=== PATIENT | male | born 1955 | race Asian ===

== ENCOUNTER 2017-06-23 08:18 | Emergency (ER) | payer OTHER ==
[2017-06-23] MEDS ORDERED: KETOROLAC 30 MG/ML 1 ML VIAL IVP STA (08:38)
--- NOTE | 2017-06-23 08:41 | ED ---
General Adult HPI - General Chief complaint: Back Pain/Injury Stated complaint: Back pain Time Seen by Provider: 06/23/17 08:31 Source: patient, family, RN notes reviewed Mode of arrival: ambulatory Limitations: language barrier (Patient's [id number] translates.) - History of Present Illness Initial comments: Patient's a 61-year-old male significant past medical history for hypertension, presenting today with a chief complaint of lower back pain times one week. Family member at bedside helps translate information. He states that he was experiencing pain to the right lower side times one week. He states over the last 2 days she's been experiencing some discomfort both on the right and left sides. Patient does admit that it's worse with certain movements when he lays down and sits up. He denies any injury or trauma. He denies any other complaints or symptoms. States she's been trying some [id number] medications with no relief of symptoms. Patient denies any recent fever, chills , shortness of breath, chest pain, abdominal pain, nausea or vomiting, numbness or tingling, dysuria or hematuria, constipation or diarrhea, headaches or visual changes, or any other complaints. - Related Data Home Medications Medication Instructions Recorded Confirmed Losartan Potassium [Cozaar] 100 mg PO DAILY 04/15/17 06/23/17 amLODIPine [Norvasc] 10 mg PO DAILY 04/15/17 06/23/17 Meloxicam [Mobic] 15 mg PO DAILY 06/23/17 06/23/17 Previous Rx's Medication Instructions Recorded Cyclobenzaprine [Flexeril] 10 mg PO TID #20 tab 06/23/17 Ibuprofen [Motrin] 600 mg PO Q6HR PRN #40 day 06/23/17 Allergies Allergy/AdvReac Type Severity Reaction Status Date / Time No Known Allergies Allergy Verified 06/23/17 09:11 Review of Systems ROS Statement: Those systems with pertinent positive or pertinent negative responses have been documented in the HPI. ROS Other: All systems not noted in ROS Statement are negative. Past Medical History Past Medical History: Hypertension Additional Past Medical History / Comment(s): hydronephrosis History of Any Multi-Drug Resistant Organisms: None Reported Past Surgical History: Unable to Obtain Additional Past Surgical History / Comment(s): kidney surgery Past Psychological History: No Psychological Hx Reported Smoking Status: Never smoker Past Alcohol Use History: None Reported Past Drug Use History: None Reported General Exam - General Exam Comments Initial Comments: General: The patient is awake and alert, in no distress, and does not appear acutely ill. Eye: Pupils are equal, round and reactive to light, extra-ocular movements are intact. No nystagmus. There is normal conjunctiva bilaterally. No signs of icterus. Ears, nose, mouth and throat: There are moist mucous membranes and no oral lesions. Neck: The neck is supple, there is no tenderness or JVD. Cardiovascular: There is a regular rate and rhythm. No murmur, rub or gallop is appreciated. Respiratory: Lungs are clear to auscultation, respirations are non-labored, breath sounds are equal. No wheezes, stridor, rales, or rhonchi. Gastrointestinal: Soft, non-distended, non-tender abdomen without masses or organomegaly noted. There is no rebound or guarding present. Tender palpation over the right flank. Musculoskeletal: Normal ROM, no tenderness. Strength 5/5. Sensation intact. Pulses equal bilaterally 2+. Neurological: A&O x 3. CN II-XII intact, There are no obvious motor or sensory deficits. Coordination appears grossly intact. Speech is normal. Skin: Skin is warm and dry and no rashes or lesions are noted. Psychiatric: Cooperative, appropriate mood & affect, normal judgment. Limitations: language barrier Course Vital Signs 06/23/17 06/23/17 08:21 08:51 Temperature 98.1 F Pulse Rate 69 Respiratory 18 Rate Blood Pressure 131/82 O2 Sat by Pulse 98 Oximetry Medical Decision Making - Medical Decision Making Patient's CT reviewed and shows postop changes. Cholelithiasis. Indeterminate foci within the liver, indeterminate lung nodules. Follow-up recommended. Caliectasis. the right kidney. Patient's labs been reviewed. Results were discussed with the patient and his [id number] at bedside. They're advised to follow-up with the family doctor for further evaluation. Will be started on a muscle relaxer and anti-inflammatories as patient's pain is reproduced with certain movements. [place] that it may be muscular skeletal. Advised close follow -up returning if symptoms increase or worsen or for any other concerns. - Lab Data Result diagrams: 06/23/17 08:47 06/23/17 08:47 Lab Results 06/23/17 06/23/17 06/23/17 Range/Units 08:47 08:47 08:47 WBC 5.7 (3.8-10.6) k/uL RBC 5.24 (4.30-5.90) m/uL Hgb 15.7 (13.0-17.5) gm/dL Hct 46.3 (39.0-53.0) % MCV 88.5 (80.0-100.0) fL MCH 30.0 (25.0-35.0) pg MCHC 33.9 (31.0-37.0) g/dL RDW 12.5 (11.5-15.5) % Plt Count 162 (150-450) k/uL Neutrophils % 60 % Lymphocytes % 31 % Monocytes % 6 % Eosinophils % 1 % Basophils % 1 % Neutrophils # 3.4 (1.3-7.7) k/uL Lymphocytes # 1.8 (1.0-4.8) k/uL Monocytes # 0.3 (0-1.0) k/uL Eosinophils # 0.1 (0-0.7) k/uL Basophils # 0.0 (0-0.2) k/uL Sodium 145 (137-145) mmol/L Potassium 3.7 (3.5-5.1) mmol/L Chloride 109 H (98-107) mmol/L Carbon Dioxide 23 (22-30) mmol/L Anion Gap 13 mmol/L BUN 21 H (9-20) mg/dL Creatinine 1.11 (0.66-1.25) mg/dL Est GFR (CKD-EPI)AfAm 83 (>60 ml/min/1.73 sqM) Est GFR (CKD-EPI)NonAf 72 (>60 ml/min/1.73 sqM) Glucose 152 H (74-99) mg/dL Calcium 9.2 (8.4-10.2) mg/dL Total Bilirubin 1.0 (0.2-1.3) mg/dL AST 22 (17-59) U/L ALT 28 (21-72) U/L Alkaline Phosphatase 50 (38-126) U/L Total Protein 7.1 (6.3-8.2) g/dL Albumin 4.1 (3.5-5.0) g/dL Amylase 74 (30-110) U/L Lipase 140 (23-300) U/L Urine Color Light Yellow Urine Appearance Clear (Clear) Urine pH 6.5 (5.0-8.0) Ur Specific [place] 1.011 (1.001-1.035) Urine Protein Trace H (Negative) Urine Glucose (UA) Negative (Negative) Urine Ketones Negative (Negative) Urine Blood Negative (Negative) Urine Nitrite Negative (Negative) Urine Bilirubin Negative (Negative) Urine Urobilinogen <2.0 (<2.0) mg/dL Ur Leukocyte Esterase Negative (Negative) Disposition Clinical Impression: Acute low back pain Disposition: HOME SELF-CARE Condition: Good Instructions: Acute Low Back Pain (ED) Additional Instructions: Please use medication as discussed. Please follow-up with family doctor in the next 2 days. Please return to emergency room if the symptoms increase or worsen or for any other concerns. Prescriptions: Cyclobenzaprine [Flexeril] 10 mg PO TID #20 tab Ibuprofen [Motrin] 600 mg PO Q6HR PRN #40 day PRN Reason: Pain Referrals: None,Stated [REFERRING] - 1-2 days Favian Josue DO [STAFF PHYSICIAN] - 1-2 days Zackery Davenport MD [REFERRING] - 1-2 days Time of Disposition: 10:11
[2017-06-23 08:52] VITALS: RESP 18
[2017-06-23 09:07] LABS: Appearance,Urine Clear (Clear); Bilirubin,Urine Negative (Negative); Blood,Urine Negative (Negative); Color,Urine Light Yellow; Glucose,Urine (UA) Negative (Negative); Ketones,Urine Negative (Negative); Leukocyte Esterase,Urine Negative (Negative); PH, Urine 6.5 (5.0-8.0); Protein,Urine Trace (Negative); Specific Gravity,Urine 1.011 (1.001-1.035); Urobilinogen,Urine <2.0 mg/dL (<2.0)
[2017-06-23 09:09] LABS: Basophils % (A) 1 %; Eosinophils # (A) 0.1 k/uL (0-0.7); Eosinophils % (A) 1 %; HCT 46.3 % (39.0-53.0); HGB 15.7 gm/dL (13.0-17.5); Lymphocytes # (A) 1.8 k/uL (1.0-4.8); Lymphocytes % (A) 31 %; MCHC 33.9 g/dL (31.0-37.0); MCV 88.5 fL (80.0-100.0); Mean Platelet Volume 8.5; Monocytes # (A) 0.3 k/uL (0-1.0); Monocytes % (A) 6 %; Neutrophils # (A) 3.4 k/uL (1.3-7.7); Neutrophils % (A) 60 %; Platelet Count 162 k/uL (150-450); RBC 5.24 m/uL (4.30-5.90); RDW 12.5 % (11.5-15.5); WBC 5.7 k/uL (3.8-10.6)
--- NOTE | 2017-06-23 09:17 | XR ---
EXAMINATION TYPE: XR KUB DATE OF EXAM: 06/23/2017 COMPARISON: NONE HISTORY: Pain TECHNIQUE: One view abdominal series FINDINGS: The osseous structures are intact. The bowel gas pattern is nonspecific. Lung bases are clear. Surg ical clips in the gallbladder fossa are suggested. There is a large calcification in the right upper quadrant measuring 1 cm. IMPRESSION: 1. Nonspecific abdomen. 2. Nonspecific 1 cm right upper quadrant calcification could potentially be related to be large renal calculus. Given the clips within the gallbladder fossa a gallstone is felt less likely correlate wit h the surgical history for confirmation. There is no obstructive pattern and therefore the possibilit y of gallstone ileus is unlikely.
[2017-06-23 09:19] LABS: Albumin 4.1 g/dL (3.5-5.0); Calcium 9.2 mg/dL (8.4-10.2); Potassium 3.7 mmol/L (3.5-5.1); Total Protein 7.1 g/dL (6.3-8.2)
--- NOTE | 2017-06-23 10:00 | CT ---
EXAMINATION TYPE: CT abdomen pelvis wo con DATE OF EXAM: 06/23/2017 COMPARISON: NONE HISTORY: Rt flank pain CT DLP: 329.9 mGycm Automated exposure control for dose reduction was used. TECHNIQUE: Helical acquisition of images from the lung bases through the pelvis. FINDINGS: Posterior diaphragmatic kidney contains the upper pole of the right kidney. Lack of contras t may compromise sensitivity. LUNG BASES: Minimal subpleural nodularity is indeterminate. AORTA: No significant abnormality is appreciated. LIVER/GB: Multiple subcentimeter hypodense foci within the liver are indeterminate. There is a gallst one present within the neck of the gallbladder measuring approximately 16 mm, some smaller stones may be present. PANCREAS: No significant abnormality is seen. SPLEEN: No significant abnormality is seen. ADRENALS: No significant abnormality is seen. KIDNEYS: The right kidney is posteriorly displaced. Surgical clips are present towards the renal hilu m. There is some caliectasis present at the upper pole and mid pole. No ureteral calcification is tono dent. No nephrolithiasis bilaterally, no evident cortical mass on this noncontrast exam. REPRODUCTIVE ORGANS: No significant abnormality is seen. URINARY BLADDER: No significant abnormality is seen. BOWEL: No significant abnormality is seen. The appendix is not dilated, some luminal high density ma y represent appendicolith, there is also luminal air. FREE AIR: No Free Air is visible. ASCITES: None visible. PELVIC ADENOPATHY: None visualized. RETROPERITONEAL ADENOPATHY: No Retroperitoneal Adenopathy visible. OSSEOUS STRUCTURES: Degenerative disc disease noted in the visualized lumbar spine. IMPRESSION: NONCONTRAST EXAM. POSTOP CHANGES. CHOLELITHIASIS. INDETERMINATE FOCI WITHIN THE LIVER, INDETERMINATE LUNG NODULES. FOLLOW-UP RECOMMENDED. CALIECTASIS NOTED WITHIN THE RIGHT KIDNEY, COMPARISON WITH OLD E XAMS MAY BE OF BENEFIT.
[2017-06-23 10:43] VITALS: BP 164/79; PULSE 61; TEMP 98.8
== END 2017-06-23 10:24 | disposition home or self-care (01) ==
LOC: EC 08:18
DX: M54.5 Low back pain (principal); K80.20 Calculus of gallbladder without cholecystitis without obstruction; N28.89 Other specified disorders of kidney and ureter; I10 Essential (primary) hypertension; Z79.899 Other long term (current) drug therapy; Z79.1 Long term (current) use of non-steroidal anti-inflammatories (NSAID)
CPT/HCPCS: 36415; 80053; 82150; 83690; 85025; 81003; 87086; 74018; 74176; 99284; 96374; J1885

== ENCOUNTER 2021-01-05 22:26 | Emergency (ER) | payer OTHER ==
[2021-01-05] MEDS ORDERED: KETOROLAC 15 MG/ML 1 ML VIAL IVP STA (22:50)
[2021-01-05] MEDS ORDERED: ONDANSETRON 4 MG/2 ML VIAL IVP STA (22:50)
[2021-01-05] MEDS ORDERED: SODIUM CHLORIDE 0.9% 1,000 ML IV STA (22:50)
--- NOTE | 2021-01-05 23:31 | XR ---
EXAMINATION TYPE: XR KUB DATE OF EXAM: 01/05/2021 COMPARISON: 06/23/2017 HISTORY: Flank pain TECHNIQUE: 2 views FINDINGS: There is 2 cm rounded calcification over the right upper quadrant that is large calcified g allstone. There is no sign of intestinal obstruction or pneumoperitoneum. Fecal pattern is normal. Th ere is no evidence of a mass. There are no pathologic calcifications over the kidneys. Bony structures are intact. IMPRESSION: Nonacute abdomen. Large calcified gallstone.
[2021-01-05 23:32] LABS: Appearance,Urine Clear (Clear); Bilirubin,Urine Negative (Negative); Blood,Urine Negative (Negative); Color,Urine Light Yellow; Glucose,Urine (UA) 2+ (Negative); Ketones,Urine Negative (Negative); Leukocyte Esterase,Urine Negative (Negative); Nitrite,Urine Negative (Negative); PH, Urine 6.5 (5.0-8.0); Protein,Urine Negative (Negative); Specific Gravity,Urine 1.011 (1.001-1.035); Urobilinogen,Urine <2.0 mg/dL (<2.0)
[2021-01-05 23:33] LABS: Basophils # (A) 0.1 k/uL (0-0.2); Basophils % (A) 1 %; Eosinophils # (A) 0.2 k/uL (0-0.7); Eosinophils % (A) 3 %; HCT 45.9 % (39.0-53.0); HGB 15.7 gm/dL (13.0-17.5); Lymphocytes # (A) 2.3 k/uL (1.0-4.8); Lymphocytes % (A) 34 %; MCH 31.7 pg (25.0-35.0); MCHC 34.2 g/dL (31.0-37.0); MCV 92.7 fL (80.0-100.0); Mean Platelet Volume 8.1; Monocytes # (A) 0.4 k/uL (0-1.0); Monocytes % (A) 6 %; Neutrophils # (A) 3.8 k/uL (1.3-7.7); Neutrophils % (A) 56 %; Platelet Count 148 k/uL (150-450); RBC 4.95 m/uL (4.30-5.90); RDW 12.2 % (11.5-15.5); WBC 6.8 k/uL (3.8-10.6)
[2021-01-05 23:48] LABS: Albumin 4.1 g/dL (3.5-5.0); Calcium 9.1 mg/dL (8.4-10.2); Potassium 3.3 mmol/L (3.5-5.1); Total Bilirubin 1.1 mg/dL (0.2-1.3); Total Protein 7.2 g/dL (6.3-8.2)
[2021-01-05] MEDS ORDERED: POTASSIUM CHLORIDE ER 20 MEQ TAB.ER PO STA (23:51)
--- NOTE | 2021-01-05 23:53 | CT ---
EXAMINATION TYPE: CT abdomen pelvis wo con DATE OF EXAM: 01/05/2021 COMPARISON: 06/23/2017 HISTORY: pain CT DLP: 422.3 mGycm Automated exposure control for dose reduction was used. Images obtained from the diaphragm to the floor the pelvis without contrast. Lung bases are clear. There is no pleural effusion. Heart appears enlarged. There is no pericardial e ffusion. Liver spleen stomach pancreas appear intact. Bile ducts are not dilated. There is single 2 c m calcified gallstone. Gallbladder is contracted. There is no adrenal mass. Kidneys show normal size. There is some fullness of the right renal pelvis. There are clips at the right renal hilum. I see no evidence of ureteral calculus. Left kidney shows no sign of obstruction. There is no retroperitoneal adenopathy. Appendix appears normal. Bladder dist ends smoothly. There is no inguinal hernia. There is no free fluid in the pelvis. There is no mesenteric edema. There is no ascites or free air. There is no bowel obstruction. Lumbar vertebra have normal alignment. There is no compression fracture. There is degenerative disc space na rrowing at L4-5 and L5-S1. The bony pelvis is intact. The hip joints are intact. IMPRESSION: There is some fullness right renal collecting system but no calculus seen. This could relate to previ ous obstruction. Large calcified gallstone. No dilated ducts. No significant change compared to old exam..
--- NOTE | 2021-01-05 23:59 | ED ---
Abdominal Pain HPI - General Chief Complaint: Abdominal Pain Stated Complaint: Kidney stone Time Seen by Provider: 01/05/21 22:40 Source: patient, family, RN notes reviewed Mode of arrival: ambulatory - History of Present Illness Initial Comments: Patient is a 65-year-old male that presents to the emergency department complaining of right flank pain. He notes he does have a history of kidney stones that have required a surgical procedure to remove. Family members present room to translate. He notes that his pain is approximately a 6-7 out of 10 with no relief from at home remedies. He denied any alleviating or aggravating factors at this time. He was otherwise a well-appearing 65-year-old male in no apparent distress. He denied any chest pain shortness of breath h eadache nausea vomiting diarrhea constipation fever fatigue chills. - Related Data Home Medications Medication Instructions Recorded Confirmed Losartan Potassium [Cozaar] 100 mg PO DAILY 04/15/17 06/23/17 amLODIPine [Norvasc] 10 mg PO DAILY 04/15/17 06/23/17 Meloxicam [Mobic] 15 mg PO DAILY 06/23/17 06/23/17 Previous Rx's Medication Instructions Recorded Cyclobenzaprine [Flexeril] 10 mg PO TID #20 tab 06/23/17 Ibuprofen [Motrin] 600 mg PO Q6HR PRN #40 day 06/23/17 Ketorolac [Toradol] 10 mg PO Q8HR #15 tab 01/06/21 Allergies Allergy/AdvReac Type Severity Reaction Status Date / Time No Known Allergies Allergy Verified 06/23/17 09:11 Review of Systems ROS Statement: Those systems with pertinent positive or pertinent negative responses have been documented in the HPI. ROS Other: All systems not noted in ROS Statement are negative. Past Medical History Past Medical History: Hypertension Additional Past Medical History / Comment(s): hydronephrosis History of Any Multi-Drug Resistant Organisms: None Reported Past Surgical History: Unable to Obtain Additional Past Surgical History / Comment(s): kidney surgery Past Psychological History: No Psychological Hx Reported Past Alcohol Use History: None Reported Past Drug Use History: None Reported General Exam General appearance: alert, in no apparent distress Head exam: Present: atraumatic, normocephalic, normal inspection Eye exam: Present: normal appearance, PERRL, EOMI. Absent: scleral icterus, conjunctival injection, periorbital swelling Neck exam: Present: normal inspection Respiratory exam: Present: normal lung sounds bilaterally. Absent: respiratory distress, wheezes, rales, rhonchi, stridor Cardiovascular Exam: Present: regular rate, normal rhythm, normal heart sounds. Absent: systolic murmur, diastolic murmur, rubs, gallop, clicks GI/Abdominal exam: Present: soft, normal bowel sounds. Absent: distended, tenderness, guarding, rebound, rigid Extremities exam: Present: normal inspection, full ROM, normal capillary refill. Absent: tenderness, pedal edema, joint swelling, calf tenderness Back exam: Present: normal inspection, full ROM, CVA tenderness (R) Neurological exam: Present: alert, oriented X3 Psychiatric exam: Present: normal affect, normal mood Skin exam: Present: warm, dry, intact, normal color. Absent: rash Course Vital Signs 01/05/21 22:35 Temperature 98.1 F Pulse Rate 65 Respiratory 19 Rate Blood Pressure 174/80 O2 Sat by Pulse 98 Oximetry Medical Decision Making - Medical Decision Making 65-year-old male complaining of right flank pain with a history kidney stones. Labs, 50 mg Toradol, 4 g of Zofran, 1 L normal saline, CT of the abdomen and pelvis, KUB ordered. Labs: Potassium 3.3, 20 mEq potassium ordered. Rest of labs unremarkable. CT of the abdomen and pelvis shows some fluid collection in the right renal collecting system no obstruction or calculi noted. A calcified large gallstone. KUB showed right upper quadrant calcified gallstone. Case discussed with Dr. Burns, patient discharge home. - Lab Data Result diagrams: 01/05/21 23:05 01/05/21 23:05 Lab Results 01/05/21 01/05/21 01/05/21 Range/Units 23:05 23:05 23:05 WBC 6.8 (3.8-10.6) k/uL RBC 4.95 (4.30-5.90) m/uL Hgb 15.7 (13.0-17.5) gm/dL Hct 45.9 (39.0-53.0) % MCV 92.7 (80.0-100.0) fL MCH 31.7 (25.0-35.0) pg MCHC 34.2 (31.0-37.0) g/dL RDW 12.2 (11.5-15.5) % Plt Count 148 L (150-450) k/uL MPV 8.1 Neutrophils % 56 % Lymphocytes % 34 % Monocytes % 6 % Eosinophils % 3 % Basophils % 1 % Neutrophils # 3.8 (1.3-7.7) k/uL Lymphocytes # 2.3 (1.0-4.8) k/uL Monocytes # 0.4 (0-1.0) k/uL Eosinophils # 0.2 (0-0.7) k/uL Basophils # 0.1 (0-0.2) k/uL Sodium 142 (137-145) mmol/L Potassium 3.3 L (3.5-5.1) mmol/L Chloride 109 H (98-107) mmol/L Carbon Dioxide 25 (22-30) mmol/L Anion Gap 8 mmol/L BUN 23 H (9-20) mg/dL Creatinine 1.13 (0.66-1.25) mg/dL Est GFR (CKD-EPI)AfAm 79 (>60 ml/min/1.73 sqM) Est GFR (CKD-EPI)NonAf 69 (>60 ml/min/1.73 sqM) Glucose 141 H (74-99) mg/dL Calcium 9.1 (8.4-10.2) mg/dL Total Bilirubin 1.1 (0.2-1.3) mg/dL AST 32 (17-59) U/L ALT 25 (4-49) U/L Alkaline Phosphatase 48 (38-126) U/L Total Protein 7.2 (6.3-8.2) g/dL Albumin 4.1 (3.5-5.0) g/dL Amylase 73 (30-110) U/L Lipase 152 (23-300) U/L Urine Color Light Yellow Urine Appearance Clear (Clear) Urine pH 6.5 (5.0-8.0) Ur Specific [place] 1.011 (1.001-1.035) Urine Protein Negative (Negative) Urine Glucose (UA) 2+ H (Negative) Urine Ketones Negative (Negative) Urine Blood Negative (Negative) Urine Nitrite Negative (Negative) Urine Bilirubin Negative (Negative) Urine Urobilinogen <2.0 (<2.0) mg/dL Ur Leukocyte Esterase Negative (Negative) - Radiology Data Radiology results: report reviewed, image reviewed KUB: Nonacute abdomen. Large calcified gallstone. CT the abdomen and pelvis: There is some fullness right renal collecting system but no calculus seen. This could relate to previous obstruction. Large calcified gallstone. No dilated ducts. No significant change compared to old exam. Disposition Clinical Impression: Right flank pain, Gallstone Disposition: HOME SELF-CARE Condition: Stable Instructions (If sedation given, give patient instructions): Abdominal Pain (ED) Additional Instructions: Please return to the Emergency Department if symptoms worsen or any other concerns. Follow-up with primary care 1-2 days. Follow-up with general surgeon as needed. Prescriptions: Ketorolac [Toradol] 10 mg PO Q8HR #15 tab Is patient prescribed a controlled substance at d/c from ED?: No Referrals: Nonstaff,Physician [Primary Care Provider] - 1-2 days Time of Disposition: 00:13
[2021-01-06 01:00] VITALS: BP 126/78; PULSE 70; RESP 18; TEMP 97.7
== END 2021-01-06 00:59 | disposition home or self-care (01) ==
LOC: EC 22:26
DX: K80.20 Calculus of gallbladder without cholecystitis without obstruction (principal); I10 Essential (primary) hypertension; Z79.899 Other long term (current) drug therapy
CPT/HCPCS: 36415; 80053; 82150; 83690; 85025; 81003; 74018; 74176; 99284; 96374; 96375; 96361; J2405; J1885